=== PATIENT | female | born 1990 | race African-American/Black ===

== ENCOUNTER 2017-08-21 15:42 | Emergency (ER) | payer MEDICAID ==
[~2017-08-21] VITALS: Ht 170.2 cm; Wt 113.6 kg
[~2017-08-21 15:42] MED LIST: CEPHALEXIN500 M1 PO; ELIMITE TOP; EQUALINE PRENATAL PO; IBU800 M1 PO; IMPLANON68 MG ID; LEXAPRO20 MG PO; NO HOME MEDICATIONS; NORCO 325 MG-7.1 TAB PO; PERCOCET 325 MG1 TA2 PO; PERCODAN TABL1 UDTAB PO; PRENATAL1 TA1 PO; SYNTHROID 0.0.025 MG PO; SYNTHROID0.075 MG/T PO; TYLENOL 325MG325 MG PO; ZANTAC 150MG T150 MG PO; ZITHROMAX Z PA250 MG PO
[2017-08-21 15:53] VITALS: BP 114/67; PULSE 105; TEMP 98.8
[2017-08-21 16:40] LABS: COLLECTION METHOD CLEAN CATCH
[2017-08-21 16:46] LABS: BASO # 0.1 (0.0-0.2); BASO % 0.5 % (0.0-2.0); EOS # 0.2 (0.0-0.7); EOS % 1.2 % (0-4.0); GRAN # 12.1 (1.4-6.5); HEMATOCRIT 40.7 % (37.0-47.0); HEMOGLOBIN 13.6 g/dl (12.5-16.0); LYMPH # 3.6 (1.2-3.4); LYMPH % 21.3 % (20.0-51.0); MEAN CELL VOLUME 87 fl (80.0-100.0); MEAN CORPUSCULAR HEMOGLOBIN 29 pg (27.0-31.0); MEAN CORPUSCULAR HGB CONC 33 g/dl (33.0-37.0); MEAN PLATELET VOLUME 11.9 fl (7.4-10.4); MONO % 5.6 % (1.7-9.3); PLATELET COUNT 251 K/mm3 (130-400); RED BLOOD COUNT 4.69 M/mm3 (4.10-5.30); REDCELL DISTRIBUTION WIDTH-CV 12.6 % (11.5-14.5)
[2017-08-21 16:47] LABS: MUCOUS Present /lpf; PH 5 (5-8); URINE APPEARANCE Clear; URINE BACTERIA Rare /hpf; URINE BILIRUBIN Negative (NEGATIVE); URINE BLOOD Negative (NEGATIVE); URINE COLOR Yellow; URINE GLUCOSE Negative (NEGATIVE); URINE KETONE Negative (NEGATIVE); URINE LEUKOCYTE ESTERASE Negative (NEGATIVE); URINE NITRATE Negative (NEGATIVE); URINE PROTEIN(semi-quant) 2+ (NEGATIVE); URINE UROBILINOGEN Negative (NEGATIVE)
[2017-08-21 16:55] LABS: ALBUMIN 4.7 gm/dL (3.5-5.0); BILIRUBIN,TOTAL 0.4 mg/dL (0.0-1.0); CALCIUM 9.5 mg/dL (8.4-10.2); CREATININE, serum 0.77 mg/dL (0.52-1.25); POTASSIUM 3.9 mmol/L (3.4-5.0); TOTAL PROTEIN 8.1 gm/dL (6.4-8.2)
[2017-08-21] MEDS ORDERED: ZOFRAN ODT4 MG PO (17:30)
== END 2017-08-21 17:46 | disposition home or self-care (01) ==
LOC: COL.ER 15:42
PROVIDERS: Physician Assistant
DX: R10.13 Epigastric pain (principal); R11.2 Nausea with vomiting, unspecified; E03.9 Hypothyroidism, unspecified; Z90.49 Acquired absence of other specified parts of digestive tract
CPT/HCPCS: J2405; J7030

== ENCOUNTER 2018-10-10 17:23 | Emergency (ER) | payer MEDICAID | END 2018-10-10 19:39 | disposition home or self-care (01) | LOC: COL.ER 17:23 | DX: H10.33 Unspecified acute conjunctivitis, bilateral (principal); Z90.49 Acquired absence of other specified parts of digestive tract; Z98.890 Other specified postprocedural states ==

== ENCOUNTER 2018-11-28 09:37 | Emergency (ER) | payer MEDICAID ==
[~2018-11-28] VITALS: Ht 165.1 cm; Wt 97.7 kg
[~2018-11-28 09:37] MED LIST changes: +AKTOB 5 ML5 ML OP; +ZOFRAN ODT4 MG PO
[2018-11-28 09:49] VITALS: BP 124/84; TEMP 98.1
[2018-11-28] MEDS ORDERED: PHENERGAN 25 TA25 MG PO (09:59)
[2018-11-28] MEDS ORDERED: FLAGYL500 MG PO (09:59)
[2018-11-28 10:18] LABS: COLLECTION METHOD CLEAN CATCH
[2018-11-28 10:23] LABS: BASO # 0.1 (0.0-0.2); BASO % 0.5 % (0.0-2.0); EOS # 0.2 (0.0-0.7); EOS % 1.8 % (0-4.0); GRAN # 7.4 (1.4-6.5); GRAN % 78.6 % (42.2-75.2); LYMPH # 1.3 (1.2-3.4); LYMPH % 13.4 % (20.0-51.0); MEAN CELL VOLUME 87 fl (80.0-100.0); MEAN CORPUSCULAR HEMOGLOBIN 29 pg (27.0-31.0); MEAN CORPUSCULAR HGB CONC 34 g/dl (33.0-37.0); MEAN PLATELET VOLUME 12.4 fl (7.4-10.4); MONO # 0.5 (0.1-0.6); MONO % 5.3 % (1.7-9.3); PLATELET COUNT 180 K/mm3 (130-400); REDCELL DISTRIBUTION WIDTH-CV 13.2 % (11.5-14.5)
[2018-11-28 10:26] LABS: MUCOUS Present /lpf; PH 5 (5-8); SQUAMOUS EPITHELIAL 0-2 /hpf; URINE APPEARANCE Clear; URINE BACTERIA None Seen /hpf; URINE BILIRUBIN Positive (NEGATIVE); URINE BLOOD Negative (NEGATIVE); URINE COLOR Amber; URINE GLUCOSE Negative (NEGATIVE); URINE KETONE Trace (NEGATIVE); URINE LEUKOCYTE ESTERASE 1+ (NEGATIVE); URINE NITRATE Negative (NEGATIVE); URINE PROTEIN(semi-quant) 2+ (NEGATIVE); URINE RBC 0-2 /hpf; URINE UROBILINOGEN >=4.0 mg/dL (NEGATIVE)
[2018-11-28 10:27] LABS: HEMATOCRIT 35.5 % (37.0-47.0)
[2018-11-28 10:34] LABS: ALANINE AMINOTRANSFERASE < 6 U/L (9-52); ALKALINE PHOSPHATASE 65 U/L (50-136); ANION GAP 7 mmol/L (7-16); AST,SGOT 15 U/L (15-37); BILIRUBIN,TOTAL 0.6 mg/dL (0.0-1.0); BLOOD UREA NITROGEN 20 mg/dL (7-17); C-REACTIVE PROTEIN 4.4 mg/dL (0.0-0.9); CALCIUM 9.4 mg/dL (8.4-10.2); CARBON DIOXIDE 25 mmol/L (22-30); CHLORIDE 106 mmol/L (98-107); CREATININE, serum 1.16 (0.52-1.25); GLUCOSE 101 mg/dL (74-106); POTASSIUM 3.6 mmol/L (3.4-5.0); SODIUM 138 mmol/L (137-145); TOTAL PROTEIN 7.2 gm/dL (6.4-8.2)
[2018-11-28] MEDS ORDERED: CEFTIN500 MG PO (10:48)
[2018-11-28 11:22] VITALS: PULSE 90
== END 2018-11-28 11:25 | disposition home or self-care (01) ==
LOC: COL.ER 09:37
PROVIDERS: Physician Assistant
DX: N39.0 Urinary tract infection, site not specified (principal); Z90.49 Acquired absence of other specified parts of digestive tract; Z98.51 Tubal ligation status; Z98.890 Other specified postprocedural states
CPT/HCPCS: J0696; J1885; J2405; J7030

== ENCOUNTER 2019-01-03 15:59 | Emergency (ER) | payer MEDICAID ==
[~2019-01-03] VITALS: Ht 317.5 cm; Wt 96.4 kg
[~2019-01-03 15:59] MED LIST changes: +CEFTIN500 MG PO; +FLAGYL500 MG PO; +PHENERGAN 25 TA25 MG PO
[2019-01-03 16:08] VITALS: BP 126/74; TEMP 97.8
[2019-01-03 16:19] LABS: COLLECTION METHOD CLEAN CATCH
[2019-01-03 16:27] LABS: MUCOUS Present /lpf; PH 6 (5-8); URINE APPEARANCE Clear; URINE BACTERIA None Seen /hpf; URINE BILIRUBIN Negative (NEGATIVE); URINE BLOOD 2+ (NEGATIVE); URINE COLOR Yellow; URINE GLUCOSE Negative (NEGATIVE); URINE KETONE Negative (NEGATIVE); URINE LEUKOCYTE ESTERASE Negative (NEGATIVE); URINE NITRATE Negative (NEGATIVE); URINE PROTEIN(semi-quant) Negative (NEGATIVE); URINE RBC >50 /hpf; URINE UROBILINOGEN Negative (NEGATIVE)
[2019-01-03] MEDS ORDERED: NORCO 325 MG-51 TAB PO (18:14)
[2019-01-03] MEDS ORDERED: ZOFRAN 4MG T4 MG/TAB PO (18:14)
[2019-01-03 18:22] VITALS: PULSE 72
== END 2019-01-03 18:23 | disposition home or self-care (01) ==
LOC: COL.ER 15:59
PROVIDERS: Emergency Medicine
DX: N23 Unspecified renal colic (principal); R30.0 Dysuria; E03.9 Hypothyroidism, unspecified; Z87.442 Personal history of urinary calculi; Z98.890 Other specified postprocedural states; Z98.51 Tubal ligation status
CPT/HCPCS: J1885; J2405

== ENCOUNTER → 2019-03-15 | Outpatient (CLI) | payer MEDICAID ==
[~2019-03-15] MED LIST changes: +NORCO 325 MG-51 TAB PO; +ZOFRAN 4MG T4 MG/TAB PO
== END ==
LOC: COL.RAD 10:57
DX: N18.1 Chronic kidney disease, stage 1 (principal)

== ENCOUNTER 2019-05-30 09:05 | Emergency (ER) | payer MEDICAID ==
[~2019-05-30] VITALS: Ht 170.2 cm; Wt 93.6 kg
[2019-05-30 09:31] VITALS: BP 110/65; TEMP 97.4
[2019-05-30] MEDS ORDERED: CILOXAN 5 ML5 ML OU (09:59)
[2019-05-30 10:19] VITALS: PULSE 84
== END 2019-05-30 10:20 | disposition home or self-care (01) ==
LOC: COL.ER 09:05
DX: B99.9 Unspecified infectious disease (principal); H10.89 Other conjunctivitis

== ENCOUNTER 2019-08-21 08:57 | Emergency (ER) | payer MEDICAID ==
[~2019-08-21] VITALS: Ht 170.2 cm; Wt 90.0 kg
[~2019-08-21 08:57] MED LIST changes: +CILOXAN 5 ML5 ML OU
[2019-08-21 09:12] VITALS: TEMP 98.5
[2019-08-21 10:02] LABS: COLLECTION METHOD CLEAN CATCH
[2019-08-21 10:12] LABS: MUCOUS Present /lpf; PH 5 (5-8); SQUAMOUS EPITHELIAL None Seen /hpf; URINE APPEARANCE Cloudy; URINE BACTERIA None Seen /hpf; URINE BILIRUBIN Negative (NEGATIVE); URINE BLOOD Negative (NEGATIVE); URINE COLOR Amber; URINE GLUCOSE Negative (NEGATIVE); URINE KETONE Negative (NEGATIVE); URINE LEUKOCYTE ESTERASE Negative (NEGATIVE); URINE NITRATE Negative (NEGATIVE); URINE PROTEIN(semi-quant) Negative (NEGATIVE); URINE RBC None Seen /hpf; URINE UROBILINOGEN Negative (NEGATIVE)
[2019-08-21] MEDS ORDERED: FLAGYL500 MG PO (11:09)
[2019-08-21 11:25] VITALS: BP 128/85; PULSE 84
== END 2019-08-21 11:26 | disposition home or self-care (01) ==
LOC: COL.ER 08:57
PROVIDERS: Physician Assistant
DX: J11.1 Influenza due to unidentified influenza virus with other respiratory manifestations (principal); N76.0 Acute vaginitis; B96.89 Other specified bacterial agents as the cause of diseases classified elsewhere; F32.9 Major depressive disorder, single episode, unspecified; F41.9 Anxiety disorder, unspecified; Z98.890 Other specified postprocedural states; Z90.89 Acquired absence of other organs

== ENCOUNTER 2019-10-01 17:17 | Emergency (ER) | payer MEDICAID ==
[~2019-10-01] VITALS: Ht 170.2 cm; Wt 85.9 kg
[2019-10-01 17:53] VITALS: BP 122/75; TEMP 97.7
[2019-10-01] MEDS ORDERED: TAMIFLU 75MG75 MG PO (19:13)
[2019-10-01 19:24] VITALS: PULSE 75
== END 2019-10-01 19:24 | disposition home or self-care (01) ==
LOC: COL.ER 17:17
DX: J10.1 Influenza due to other identified influenza virus with other respiratory manifestations (principal)

== ENCOUNTER 2020-03-21 11:00 | Outpatient (RCR) | payer MEDICAID ==
[~2020-03-21 11:00] MED LIST changes: +TAMIFLU 75MG75 MG PO
== END 2020-05-09 | disposition still patient (30) ==
LOC: WSPT
DX: M54.40 Lumbago with sciatica, unspecified side (principal)

== ENCOUNTER 2020-07-19 14:19 | Emergency (ER) | payer MEDICAID ==
[~2020-07-19] VITALS: Ht 170.2 cm; Wt 96.8 kg
[2020-07-19 14:33] VITALS: BP 119/76; TEMP 98.8
[2020-07-19 15:37] VITALS: PULSE 80
== END 2020-07-19 15:38 | disposition home or self-care (01) ==
LOC: COL.ER 14:19
DX: S93.402A Sprain of unspecified ligament of left ankle, initial encounter (principal); W19.XXXA Unspecified fall, initial encounter

== ENCOUNTER 2020-10-04 09:14 | Emergency (ER) | payer MEDICAID ==
[~2020-10-04] VITALS: Ht 170.2 cm; Wt 96.8 kg
[2020-10-04 09:21] VITALS: BP 118/73; TEMP 97.5
[2020-10-04] MEDS ORDERED: ZOFRAN ODT4 MG PO (09:32)
[2020-10-04 09:45] VITALS: PULSE 78
== END 2020-10-04 09:45 | disposition home or self-care (01) ==
LOC: COL.ER 09:14
DX: R10.9 Unspecified abdominal pain (principal); Z90.49 Acquired absence of other specified parts of digestive tract

== ENCOUNTER 2023-08-20 13:29 | Emergency (ER) | payer SELFPAY ==
[~2023-08-20] VITALS: Ht 167.6 cm; Wt 95.9 kg
[~2023-08-20 13:29] MED LIST changes: +FLEXERIL 1010 MG/TAB PO; +NAPROSYN500 MG PO; +NASONEX SPRAY17 GM NS
[2023-08-20 13:35] VITALS: TEMP 98.2
[2023-08-20 14:29] LABS: BASO # 0.1 K/mm3 (0.0-0.2); BASO % 0.6 % (0.0-2.0); EOS # 0.2 K/mm3 (0.0-0.7); EOS % 1.5 % (0.0-4.0); GRAN % 65.9 % (42.2-75.2); HEMATOCRIT 39.8 % (37.0-47.0); HEMOGLOBIN 12.7 g/dl (12.5-16.0); LYMPH # 2.9 K/mm3 (1.2-3.4); LYMPH % 27.3 % (20.0-51.0); MEAN CELL VOLUME 85 fl (80.0-100.0); MEAN CORPUSCULAR HEMOGLOBIN 27 pg (27-31); MEAN CORPUSCULAR HGB CONC 32 g/dl (33.0-37.0); MEAN PLATELET VOLUME 12.8 fl (7.4-10.4); MONO # 0.5 K/mm3 (0.1-0.6); MONO % 4.5 % (1.7-9.3); PLATELET COUNT 235 K/mm3 (130-400); RED BLOOD COUNT 4.69 M/mm3 (4.10-5.30); REDCELL DISTRIBUTION WIDTH-CV 14.5 % (11.5-14.5)
[2023-08-20 14:42] LABS: ALANINE AMINOTRANSFERASE 8 U/L (0-55); ALKALINE PHOSPHATASE 59 U/L (40-150); ANION GAP 12 mmol/L (7-16); AST,SGOT 14 U/L (5-34); BILIRUBIN,TOTAL 0.7 mg/dL (0.2-1.2); BLOOD UREA NITROGEN 14 mg/dL (7-19); CALCIUM 9.6 mg/dL (8.4-10.2); CARBON DIOXIDE 21 mmol/L (22-29); CHLORIDE 106 mmol/L (98-107); CREATININE, serum 0.87 mg/dL (0.57-1.11); GLUCOSE 85 mg/dL (70-99); POTASSIUM 3.7 mmol/L (3.5-4.5); SODIUM 139 mmol/L (136-145); TOTAL PROTEIN 7.2 gm/dL (6.2-8.1)
[2023-08-20 14:57] LABS: TROPONIN-I < 0.010 ng/mL (0.00-0.033)
[2023-08-20] MEDS ORDERED: PREDNISONE20 MG PO (15:26)
[2023-08-20 15:39] VITALS: BP 120/87; PULSE 74
== END 2023-08-20 15:39 | disposition home or self-care (01) ==
LOC: COL.ER 13:29
PROVIDERS: Physician Assistant
DX: R07.81 Pleurodynia (principal); Z87.891 Personal history of nicotine dependence
CPT/HCPCS: J1885